=== PATIENT | male | born 1995 | race Caucasian/White ===

== ENCOUNTER 2019-08-19 18:53 | Emergency (ER) | payer OTHER, MEDICAID, SELFPAY ==
[2019-08-19 19:20] VITALS: BP 157/88; PULSE 95; RESP 22; TEMP 36.9; O2SAT 98; BMI 36.8
--- NOTE | 2019-08-19 19:24 | DI.CT.S_ITS ---
PROCEDURE: CT HEAD/BRAIN WO CON INDICATIONS: mental status TECHNIQUE: Noncontrast 4.5 mm thick angled axial sections acquired from the foramen magnum to the vertex, with coronal and sagittal reformats. For radiation dose reduction, the following was used: automated exposure control, adjustment of mA and/or kV according to patient size. COMPARISON: None. FINDINGS: Image quality: Excellent. CSF spaces: Basal cisterns are patent. No extra-axial fluid collections. Ventricles are normal in size and shape. Brain: No midline shift. No intracranial masses or hemorrhage. Cole-white matter interface is normal. Skull and face: Calvarium and visualized facial bones are intact, without suspicious lesions. Sinuses: Visualized sinuses and mastoids are clear. IMPRESSION: Unremarkable head CT. No evidence of acute stroke, hemorrhage, or mass. Dictated by: Yosef Buck M.D. on 08/19/2019 at 19:56 Approved by: Yosef Buck M.D. on 08/19/2019 at 19:57
[2019-08-19] MEDS: SODIUM CHLORIDE 0.9% 1,000 ML 150 ML IV (19:40)
[2019-08-19 19:47] LABS: UR Morphine/Opiate cutoff 300 Negative (Negative); Ur Creatinine Normal (Normal); Ur Specific Gravity Normal (Normal); Urine Amphetamines Negative (Negative); Urine Barbiturates Negative (Negative); Urine Benzodiazepines Negative (Negative); Urine Cocaine Negative (Negative); Urine MDMA Negative (Negative); Urine Methadone Negative (Negative); Urine Methamphetamines Negative (Negative); Urine Oxycodone Negative (Negative); Urine Phencyclidine Negative (Negative); Urine Tetrahydrocannabinol Negative (Negative); Urine Tricyclic Antidepressant Negative (Negative); Urine pH Normal (Normal)
[2019-08-19 20:00] LABS: PCO2 VBG 51.5 mmHg (45-50); pH VBG 7.38 (7.33-7.43)
[2019-08-19 20:01] LABS: HCO3 VBG 30 mmol/L (23-28); Oxygen Saturation VBG 58 % (70-75); PO2 VBG 32 mmHg (35-45); Total CO2 VBG 32 mmol/L (24-29)
[2019-08-19 20:02] LABS: Add Manual Diff / Slide Review NO; Basophils Absolute Auto 100 /uL (0-100); Basophils Percent Auto 0.6 % (0-2); Eosinophils Absolute Auto 100 /uL (0-450); Eosinophils Percent Auto 1.5 % (2-4); Hematocrit 45.5 % (41-53); Hemoglobin 15.8 g/dL (13.5-17.5); Lymphocytes Absolute Auto 2100 /uL (1100-4500); Lymphocytes Percent Auto 20.8 % (25-40); Mean Corpuscular HGB Conc 34.8 % (30-36); Mean Corpuscular Hemoglobin 30.6 PG (26-34); Mean Corpuscular Volume 88.2 fL (80-100); Monocytes Absolute Auto 500 /uL (0-900); Monocytes Percent Auto 5.4 % (3-14); Neutrophils Absolute Auto 7100 /uL (1500-7000); Neutrophils Percent Auto 71.7 % (50-75); Platelet Count 292 X10^3/uL (150-400); Red Blood Cell Count 5.16 X10^6/uL (4.5-5.9); Red Cell Distribution Width 13.2 % (11.6-14.8); White Blood Cell Count 9.9 X10^3/uL (4.5-11.0)
[2019-08-19 20:11] LABS: Prothrombin Time 11.4 SECONDS (10.1-12.7)
[2019-08-19 20:14] LABS: PTT Partial Thromboplastin Tim 29 SECONDS (26.4-36.2)
[2019-08-19 20:15] LABS: Acetaminophen < 10 ug/mL (10-30); Alanine Aminotransferase 42 IU/L (<50); Albumin 4.4 g/dL (3.5-5.0); Albumin Globulin Ratio 1.4 (1.0-2.8); Alkaline Phosphatase 69 U/L (38-126); Aspartate Aminotransferase 27 IU/L (17-59); BUN Creatinine Ratio 16.7 (6-22); Bilirubin Total 0.5 mg/dL (0.2-1.3); Blood Urea Nitrogen 15 mg/dL (9-20); Calcium 9.2 mg/dL (8.4-10.2); Carbon Dioxide 30 mmol/L (22-32); Chloride 103 mmol/L (98-107); Estimated Glomerular Filt Rate > 60.0 mL/min (>60); Ethanol (ETOH) < 10 mg/dL; Globulin 3.2 g/dL (1.7-4.1); Glucose 103 mg/dL (70-100); HEMOLYSIS 20 (0-50); Potassium 4.4 mmol/L (3.4-5.1); Salicylate < 1.0 mg/dL (<20); Sodium 141 mmol/L (137-145); Total Protein 7.6 g/dL (6.3-8.2)
[2019-08-19 20:27] LABS: Troponin I < 0.012 ng/mL (0.01-0.034)
[2019-08-19 20:28] LABS: Ammonia (NH3) < 9.0 umol/L (9-30); Lactate (Lactic Acid) 1.7 mmol/L (0.7-2.1)
[2019-08-19 20:32] LABS: Prolactin 16.4 ng/mL (3.7-17.9)
[2019-08-19 20:46] LABS: Thyroid Stimulating Hormone 0.74 uIU/mL (0.47-4.68)
[2019-08-19 21:00] VITALS: BP 150/80; PULSE 104; RESP 20; O2SAT 97
--- NOTE | 2019-08-19 21:08 | ED_ITS ---
HPI - Altered Mental Status General Chief Complaint: Altered Mental Status Stated Complaint: Overdose Time Seen by Provider: 08/19/19 18:55 Source: patient Mode of arrival: Ambulatory Limitations: no limitations History of Present Illness HPI narrative: 24-year-old male smoker with extensive mental health history and frequent visits to various emergency departments presents because he seems sleepy today. Patient denies any homicidal ideation. Patient denies any alcohol street drugs nor [id number] medications such as Tylenol or aspirin. The patient had recently been given a prescription for Phenergan which is supposed to help with his anxiety and nausea, he states he only took 1 and this is confirmed by me 1 missing pill from his bottle. Additionally he takes venlafaxine 75 mg extended release which was last refilled on June 14 with a total of 30 pills and he has 15 left. Furthermore patient takes fluoxetine 20 mg which was filled also on June 14 for 30 pills and he has 24 left. Patient denies any chest pain or shortness of breath. He has no nausea, vomiting or diarrhea. He denies fever or chills. He denies any headache, blurred vision or confusion. He lives with friends but also has family in town. He denies any change in medications, diet or activity MD complaint: altered mental status Onset (ago): hour(s) Timing confirmed by: family member Severity: moderate Consistency of symptoms: unknown Associated symptoms: denies other symptoms Related Data Allergies Allergy/AdvReac Type Severity Reaction Status Date / Time No Known Drug Allergies Allergy Verified 08/19/19 19:16 Review of Systems Constitutional Constitutional: Denies chills, Denies fatigue, Denies fever(s), Denies frequent falls, Denies lethargy, Reports malaise and Denies weakness Eyes Eyes: Denies change in vision, Denies eye discharge, Denies irritation and Denies loss of vision ENT Ears, Nose, Mouth, and Throat: Denies change in voice, Denies dizziness, Denies neck pain, Denies sore throat and Denies throat swelling Cardiovascular Cardiovascular: Denies chest pain, Denies irregular heart rhythm, Denies lightheadedness, Denies palpitations, Denies dyspnea, Denies dyspnea on exertion and Denies orthopnea Respiratory Respiratory: Denies cough, Denies dyspnea, Denies dyspnea on exertion and Denies wheezing Gastrointestinal Gastrointestinal: Denies abdominal pain, Denies change in bowel habits, Denies diarrhea, Denies nausea and Denies vomiting Genitourinary Genitourinary: Denies hematuria, Denies flank pain, Denies urinary incontinence and Denies urinary urgency Musculoskeletal Musculoskeletal: Denies back pain, Denies muscle weakness, Denies neck pain, Denies numbness and Denies tingling Integumentary/Breasts Skin/Breast: Denies pruritus, Denies erythema, Denies rash and Denies wounds Neurologic Neurologic: Denies behavioral changes, Denies confusion, Denies dizziness, Denies frequent falls, Denies loss of vision, Denies numbness, Denies tingling and Denies weakness Psychiatric Psychiatric: Denies anxiety, Denies behavioral changes, Denies confusion, Denies depression, Denies homicidal ideation and Denies suicidal ideation Endocrine Endocrine: Denies fatigue, Denies flushing and Denies palpitations Hematologic/Lymphatic Hematologic/Lymphatic: Denies easy bruising Allergic/Immunologic Allergic/Immunologic: Denies urticaria, Denies throat swelling and Denies wheezing Patient History Social History Smoking Status: Never smoker alcohol intake frequency: holidays/special occasions only Substance Use Type: marijuana Exam Narrative Exam Narrative: GENERAL: [24] year old patient appears stated age. Overweight, flat affect but answering all questions accurately. Alert and oriented x3. HEAD: Atraumatic. Normocephalic. EYES: Pupils equal round and reactive. Extraocular motions intact. No scleral icterus. No injection or drainage. ENT: Nose without bleeding, purulent drainage. Throat without erythema, tonsillar hypertrophy or exudate. Airway patent. NECK: Trachea midline. Non tender CARDIOVASCULAR: Regular rate and rhythm without murmurs, gallops, or rubs. RESPIRATORY: Clear to auscultation. Breath sounds equal bilaterally. No wheezes, rales, or rhonchi. GASTROINTESTINAL: Abdomen soft, non-tender, nondistended. EXTREMITIES: No edema or joint tenderness. BACK: Nontender without deformity or crepitance. No flank tenderness. NEURO: AOx3. SKIN: No rash or erythema of visible areas Initial Vital Signs Initial Vital Signs: Vital Signs Temperature 98.5 F 08/19/19 19:20 Pulse Rate 95 H 08/19/19 19:20 Respiratory Rate 22 08/19/19 19:20 Blood Pressure 157/88 H 08/19/19 19:20 Pulse Oximetry 98 08/19/19 19:20 Course Orders Ordered: ED Orders 08/19/19 19:24 CT head/brain wo con Stat 08/19/19 19:25 EKG-12 Lead Stat 08/19/19 19:33 Urine Culture Stat Urine Drug Screen, Rapid Stat 08/19/19 19:40 Acetaminophen Stat Complete Blood Count AUTO DIFF Stat Comprehensive Metabolic Panel Stat Ethanol (ETOH) Stat Partial Thromboplastin Time Stat Prolactin Stat Prothrombin Time INR Stat Salicylate Stat Thyroid Stimulating Hormone Stat Troponin I Stat 08/19/19 19:47 Venous Blood Gas Stat 08/19/19 20:03 Ammonia (NH3) Stat Blood Culture Stat Lactate (Lactic Acid) Stat Discontinued Medications Sodium Chloride (Normal Saline 0.9%) 1,000 mls @ 150 mls/hr IV CONT ROSE Last Infusion: 08/19/19 21:18 Dose: 150 mls/hr Documented by: Admin: 08/19/19 19:40 Dose: 150 mls/hr Documented by: EMMA Reevaluation(s) Reevaluation #1: Patient is awake, alert and oriented. He is able to ambulate to the department without difficulty. His labs, exam and imaging are very reassuring. He is AOx3, ambulatory in the department. Questions answered to apparent satisfaction and return precautions given. Vital Signs Vital signs: Vital Signs - 8 hr 08/19/19 19:20 08/19/19 21:00 Temperature 98.5 F Pulse Rate 95 H 104 H Respiratory Rate 22 20 Blood Pressure 157/88 H Blood Pressure [Left Arm] 150/80 H Pulse Oximetry 98 97 MDM - Altered Mental Status Lab Data Result diagrams: 08/19/19 19:40 08/19/19 19:40 Labs: Lab Results 08/19/19 08/19/19 08/19/19 Range/Units 19:33 19:40 19:40 WBC 9.9 (4.5-11.0) X10^3/uL RBC 5.16 (4.5-5.9) X10^6/uL Hgb 15.8 (13.5-17.5) g/dL Hct 45.5 (41-53) % MCV 88.2 (80-100) fL MCH 30.6 (26-34) PG MCHC 34.8 (30-36) % RDW 13.2 (11.6-14.8) % Plt Count 292 (150-400) X10^3/uL Neut % (Auto) 71.7 (50-75) % Lymph % (Auto) 20.8 L (25-40) % [place] % (Auto) 5.4 (3-14) % Eos % (Auto) 1.5 L (2-4) % Baso % (Auto) 0.6 (0-2) % Neut # (Auto) 7100 H (1248-2804) /uL Lymph # (Auto) 2100 (1114-8669) /uL [place] # (Auto) 500 (0-900) /uL Eos # (Auto) 100 (0-450) /uL Baso # (Auto) 100 (0-100) /uL PT 11.4 (10.1-12.7) SECONDS INR 1.0 (0.9-1.3) APTT 29 (26.4-36.2) SECONDS VBG pH (7.33-7.43) VBG pCO2 (45-50) mmHg VBG pO2 (35-45) mmHg VBG HCO3 (23-28) mmol/L VBG Total CO2 (24-29) mmol/L VBG O2 Saturation (70-75) % VBG Base Excess (0-4) mmol/L Sodium (137-145) mmol/L Potassium (3.4-5.1) mmol/L Chloride (98-107) mmol/L Carbon Dioxide (22-32) mmol/L BUN (9-20) mg/dL Creatinine (0.66-1.25) mg/dL Estimated GFR (>60) mL/min BUN/Creatinine Ratio (6-22) Glucose (70-100) mg/dL Serum Osmolality Lactate (0.7-2.1) mmol/L Calcium (8.4-10.2) mg/dL Total Bilirubin (0.2-1.3) mg/dL AST (17-59) IU/L ALT (<50) IU/L Alkaline Phosphatase (38-126) U/L Ammonia (9-30) umol/L Troponin I (0.01-0.034) ng/mL Total Protein (6.3-8.2) g/dL Albumin (3.5-5.0) g/dL Globulin (1.7-4.1) g/dL Albumin/Globulin Ratio (1.0-2.8) TSH (0.47-4.68) uIU/mL Prolactin (3.7-17.9) ng/mL Salicylates (<20) mg/dL U Morph 300 ng/mL cutoff Negative (Negative) Ur Oxycodone Screen Negative (Negative) Urine Methadone Screen Negative (Negative) Acetaminophen (10-30) ug/mL Ur Barbiturates Screen Negative (Negative) U Tricyclic Antidepress Negative (Negative) Ur Phencyclidine Scrn Negative (Negative) Ur Amphetamines Screen Negative (Negative) U Methamphetamines Scrn Negative (Negative) Ur MDMA Scrn (Ecstasy) Negative (Negative) U Benzodiazepines Scrn Negative (Negative) Urine Cocaine Screen Negative (Negative) U Marijuana (THC) Screen Negative (Negative) Ethyl Alcohol ( - 10) mg/dL Ref Test (Refrig) 08/19/19 08/19/19 08/19/19 Range/Units 19:40 19:40 19:47 WBC (4.5-11.0) X10^3/uL RBC (4.5-5.9) X10^6/uL Hgb (13.5-17.5) g/dL Hct (41-53) % MCV (80-100) fL MCH (26-34) PG MCHC (30-36) % RDW (11.6-14.8) % Plt Count (150-400) X10^3/uL Neut % (Auto) (50-75) % Lymph % (Auto) (25-40) % [place] % (Auto) (3-14) % Eos % (Auto) (2-4) % Baso % (Auto) (0-2) % Neut # (Auto) (9030-3269) /uL Lymph # (Auto) (3350-1303) /uL [place] # (Auto) (0-900) /uL Eos # (Auto) (0-450) /uL Baso # (Auto) (0-100) /uL PT (10.1-12.7) SECONDS INR (0.9-1.3) APTT (26.4-36.2) SECONDS VBG pH 7.38 (7.33-7.43) VBG pCO2 51.5 H (45-50) mmHg VBG pO2 32 L (35-45) mmHg VBG HCO3 30 H (23-28) mmol/L VBG Total CO2 32 H (24-29) mmol/L VBG O2 Saturation 58 L (70-75) % VBG Base Excess 5.0 H (0-4) mmol/L Sodium 141 (137-145) mmol/L Potassium 4.4 (3.4-5.1) mmol/L Chloride 103 (98-107) mmol/L Carbon Dioxide 30 (22-32) mmol/L BUN 15 (9-20) mg/dL Creatinine 0.90 (0.66-1.25) mg/dL Estimated GFR > 60.0 (>60) mL/min BUN/Creatinine Ratio 16.7 (6-22) Glucose 103 H (70-100) mg/dL Serum Osmolality Lactate (0.7-2.1) mmol/L Calcium 9.2 (8.4-10.2) mg/dL Total Bilirubin 0.5 (0.2-1.3) mg/dL AST 27 (17-59) IU/L ALT 42 (<50) IU/L Alkaline Phosphatase 69 (38-126) U/L Ammonia (9-30) umol/L Troponin I < 0.012 (0.01-0.034) ng/mL Total Protein 7.6 (6.3-8.2) g/dL Albumin 4.4 (3.5-5.0) g/dL Globulin 3.2 (1.7-4.1) g/dL Albumin/Globulin Ratio 1.4 (1.0-2.8) TSH 0.74 (0.47-4.68) uIU/mL Prolactin 16.4 (3.7-17.9) ng/mL Salicylates < 1.0 (<20) mg/dL U Morph 300 ng/mL cutoff (Negative) Ur Oxycodone Screen (Negative) Urine Methadone Screen (Negative) Acetaminophen < 10 L (10-30) ug/mL Ur Barbiturates Screen (Negative) U Tricyclic Antidepress (Negative) Ur Phencyclidine Scrn (Negative) Ur Amphetamines Screen (Negative) U Methamphetamines Scrn (Negative) Ur MDMA Scrn (Ecstasy) (Negative) U Benzodiazepines Scrn (Negative) Urine Cocaine Screen (Negative) U Marijuana (THC) Screen (Negative) Ethyl Alcohol < 10 ( - 10) mg/dL Ref Test (Refrig) 08/19/19 08/19/19 08/19/19 Range/Units 20:03 20:03 20:03 WBC (4.5-11.0) X10^3/uL RBC (4.5-5.9) X10^6/uL Hgb (13.5-17.5) g/dL Hct (41-53) % MCV (80-100) fL MCH (26-34) PG MCHC (30-36) % RDW (11.6-14.8) % Plt Count (150-400) X10^3/uL Neut % (Auto) (50-75) % Lymph % (Auto) (25-40) % [place] % (Auto) (3-14) % Eos % (Auto) (2-4) % Baso % (Auto) (0-2) % Neut # (Auto) (4208-2051) /uL Lymph # (Auto) (8700-3180) /uL [place] # (Auto) (0-900) /uL Eos # (Auto) (0-450) /uL Baso # (Auto) (0-100) /uL PT (10.1-12.7) SECONDS INR (0.9-1.3) APTT (26.4-36.2) SECONDS VBG pH (7.33-7.43) VBG pCO2 (45-50) mmHg VBG pO2 (35-45) mmHg VBG HCO3 (23-28) mmol/L VBG Total CO2 (24-29) mmol/L VBG O2 Saturation (70-75) % VBG Base Excess (0-4) mmol/L Sodium (137-145) mmol/L Potassium (3.4-5.1) mmol/L Chloride (98-107) mmol/L Carbon Dioxide (22-32) mmol/L BUN (9-20) mg/dL Creatinine (0.66-1.25) mg/dL Estimated GFR (>60) mL/min BUN/Creatinine Ratio (6-22) Glucose (70-100) mg/dL Serum Osmolality Cancelled Lactate 1.7 (0.7-2.1) mmol/L Calcium (8.4-10.2) mg/dL Total Bilirubin (0.2-1.3) mg/dL AST (17-59) IU/L ALT (<50) IU/L Alkaline Phosphatase (38-126) U/L Ammonia < 9.0 L (9-30) umol/L Troponin I (0.01-0.034) ng/mL Total Protein (6.3-8.2) g/dL Albumin (3.5-5.0) g/dL Globulin (1.7-4.1) g/dL Albumin/Globulin Ratio (1.0-2.8) TSH (0.47-4.68) uIU/mL Prolactin (3.7-17.9) ng/mL Salicylates (<20) mg/dL U Morph 300 ng/mL cutoff (Negative) Ur Oxycodone Screen (Negative) Urine Methadone Screen (Negative) Acetaminophen (10-30) ug/mL Ur Barbiturates Screen (Negative) U Tricyclic Antidepress (Negative) Ur Phencyclidine Scrn (Negative) Ur Amphetamines Screen (Negative) U Methamphetamines Scrn (Negative) Ur MDMA Scrn (Ecstasy) (Negative) U Benzodiazepines Scrn (Negative) Urine Cocaine Screen (Negative) U Marijuana (THC) Screen (Negative) Ethyl Alcohol ( - 10) mg/dL Ref Test (Refrig) [address] scan - head: Radiologist's impression: Chart Viewer Diagnostics DATE TYPE STATUS AUTHOR Hx 08/19/19 19:24 Yosef Buck Brent Cuellar 24, M1 REG ER, [facility] ED R04 162.56cm 97.522kg BMI: 36.9kg/m? Altered Mental Status Search Chart No Data to Display No Data to Display ONSET Today 19:20 Brent Cuellar 24 M 1995 [address] [address] [address] Scan Report Signed Patient: Brent Cuellar MMR#: [id number] : 1995Acct:[id number] Age/Sex: 24 / MDate of Service: 08/19/19 Loc: ED Accession Number: [id number] Procedure: CT head/brain wo con Ordering Provider: Lloyd Coulter D.O. PROCEDURE: CT HEAD/BRAIN WO CON INDICATIONS: mental status TECHNIQUE: Noncontrast 4.5 mm thick angled axial sections acquired from the foramen magnum to the vertex, with coronal and sagittal reformats. For radiation dose reduction, the following was used: automated exposure control, adjustment of mA and/or kV according to patient size. COMPARISON: None. FINDINGS: Image quality: Excellent. CSF spaces: Basal cisterns are patent. No extra-axial fluid collections. Ventricles are normal in size and shape. Brain: No midline shift. No intracranial masses or hemorrhage. Cole-white matter interface is normal. Skull and face: Calvarium and visualized facial bones are intact, without suspicious lesions. Sinuses: Visualized sinuses and mastoids are clear. IMPRESSION: Unremarkable head CT. No evidence of acute stroke, hemorrhage, or mass. Dictated by: Yosef Buck M.D. on 08/19/2019 at 19:56 Approved by: Yosef uBck M.D. on 08/19/2019 at 19:57 ECG Data Interpretation: Mild tachycardia, sinus rhythm rate [ 104] and free of any signs of ischemia or ectopy. No ST segmental elevation or depression. No T wave inversions MDM Narrative Medical decision making narrative: Multiple etiologies for patient's symptoms considered including: [Various toxidrome including Phenergan, alcohol, sali cylates, acetaminophen and other. A electrolyte abnormalities, head injuries, conversion disorder versus depression.] Patient's symptoms improved or duration of stay with above-stated therapies. Findings and discharge diagnosis discussed with patient/family followed by verbalization of understanding Return precautions discussed with patient/family whom verbalize understanding. Discharge Plan Departure Patient Disposition: Home Clinical Impression: Increased sleeping Discharge Date/Time: 08/19/19 21:18 Instructions: DI for Altered Mental Status Activity Restrictions/Additional Instructions: *You have been diagnosed with [altered mental status, resolved, increased sleeping] *What to do: *Take medications as directed *Follow up with your primary care provider in 2-3 days, call for an appointment. Let them know you were seen in the Emergency Department and that we ask that you be seen in follow up *Return to ER if you should have any new, worsening or concerning symptoms Referrals: [facility] [Outside] [facility] [Outside]
[2019-08-19 21:57] LABS: Miscellaneous to SVL 292
[2019-08-24 09:52] LABS: Acinetobacter baumannii Not Detected (Not Detect); Candida albicans Not Detected (Not Detect); Candida glabrata Not Detected (Not Detect); Candida krusei Not Detected (Not Detect); Candida parapsilosis Not Detected (Not Detect); Candida tropicalis Not Detected (Not Detect); E. coli Not Detected (Not Detect); Enterobacter cloacae complex Not Detected (Not Detect); Enterobacteriaceae species Not Detected (Not Detect); Enterococcus species Not Detected (Not Detect); Haemophilus influenzae Not Detected (Not Detect); KPC (carbapenem-resist gene) Not Detected (Not Detect); Listeria monocytogenes Not Detected (Not Detect); Methicillin-resistant gene Not Detected (Not Detect); Neisseria meningitidis Not Detected (Not Detect); Proteus species Not Detected (Not Detect); Pseudomonas aeruginosa Not Detected (Not Detect); Serratia marcescens Not Detected (Not Detect); Staphylococcus species Not Detected (Not Detect); Streptococcus agalactiae (Gr B Not Detected (Not Detect); Streptococcus pneumonia Not Detected (Not Detect); Streptococcus pyogenes (Gr A) Not Detected (Not Detect); Streptococcus species Not Detected (Not Detect); Vancomycin-rest genes A/B Not Detected (Not Detect)
== END 2019-08-19 21:18 | disposition home or self-care (01) ==
PROVIDERS: Emergency Provider Emergency Medicine
DX: G47.10 Hypersomnia, unspecified (principal); R41.82 Altered mental status, unspecified; R00.0 Tachycardia, unspecified
CPT/HCPCS: 36415; 70450; 80053; 80305; 80320; 80329; 82140; 82805; 83605; 83930; 84146; 84443; 84484; 85025; 85610; 85730; 87040; 87077; 87086; 87147; 87150; 87205; 93005; 96360; 96361; 99283; 99285; G0480

== ENCOUNTER 2019-12-22 00:57 | Emergency (ER) | payer OTHER, MEDICAID, SELFPAY ==
[2019-12-22 00:59] VITALS: BP 137/82; PULSE 92; RESP 18; TEMP 36.7; O2SAT 97; BMI 36.8
--- NOTE | 2019-12-22 01:12 | DI.RAD.S_ITS ---
PROCEDURE: XR CHEST 2V INDICATIONS: cough TECHNIQUE: 2 views of the chest were acquired. COMPARISON: None. FINDINGS: Surgical changes and devices: None. Lungs and pleura: Lungs are clear. No pleural effusions or pneumothorax. Mediastinum: Mediastinal contours are normal. Heart size is normal. Bones and chest wall: No suspicious bony abnormalities. Soft tissues appear unremarkable. IMPRESSION: No acute cardiopulmonary disease. Dictated by: Ritchie Duggan M.D. on 12/22/2019 at 8:57 Approved by: Ritchie Duggan M.D. on 12/22/2019 at 8:58
--- NOTE | 2019-12-22 02:25 | ED_ITS ---
HPI - Chest Pain General Chief Complaint: Upper Respiratory Symptoms Stated Complaint: cough/chest pain/right arm pain Time Seen by Provider: 12/22/19 02:24 Source: patient Mode of arrival: Ambulatory Limitations: no limitations History of Present Illness HPI narrative: This is a 24-year-old male comes emergency depart with clean plane of 3 days of dry cough, chest pain and some pain into his right shoulder area. Patient states that he has not had a known fever but has felt warm intermittently. He has not had any sweats. He has had some nasal congestion but describes it as mild. He has had a dry cough which he states is nonproductive. Patient states that he does have a history of asthma, he has used his inhaler in the last 24 hours and does not normally use it. He thinks he has felt a little bit more wheezy. He does not feel wheezy or tight at this time. He has had a little bit anterior chest discomfort. States that he has had some pain in his right arm in the upper portion. He does not have any numbness tingling or weakness or difficulty with milieu therapist. He has not had any worsening symptoms with exertion. He has not had any long distance travel. He states that he has a roommate who had a friend who may have had contact with someone with coronavirus -19 at some sort of hoahaoism get together but he is unsure if this is a true exposure or not and states that his symptoms started before this person came over and visited them at the house. He denies any other surgical history. He denies any cardiac, pulmonary or embolic history in his family or for himself besides asthma. Related Data Allergies Allergy/AdvReac Type Severity Reaction Status Date / Time No Known Drug Allergies Allergy Verified 08/19/19 19:16 Review of Systems Review of Systems ROS Unobtainable: All systems reviewed & are unremarkable except as noted in HPI and below Patient History Medical History (Updated 12/22/19 @ 02:49 by Padmini Rae DO) Asthma (Acute) Social History Smoking Status: Never smoker Smoking Status: Never smoker alcohol intake frequency: holidays/special occasions only Substance Use Type: does not use Exam Narrative Exam Narrative: GEN: well nourished, well appearing male, alert and oriented x 3, patient appears to be in mild distress. HEENT: Atraumatic, pupils are equal round reactive to light, extraocular movements are intact, nares mild clear rhinorrhea, TMs are clear with no fluid, there is no conjunctival pallor. Throat is c mildly erythematous, mild tonsillar enlargement, uvula is midline with no exudates. Mild cervical lymphadenopathy bilaterally. HEART: Regular rate and rhythm without murmur, clicks, rubs. LUNGS:Lungs clear to auscultation, no wheezes, rales, crackles, chest moves symmetrically, no tachypnea accessory muscle use. Patient does have a dry cough intermittently throughout exam and HPI. ABD:bowel sounds normal, soft, non-tender, no guarding, rebound, rigidity, no masses noted, no hepatosplenomegaly MSCL: Patient has some mild tenderness in the left shoulder and upper arm, no swelling, no skin changes, no muscle atrophy, muscles strength 5/5 upper and lower extremities, full range of motion, normal gait NEURO:CN 2-12 intact, sensation normal SKIN: No rash, no erythema or other skin changes. Initial Vital Signs Initial Vital Signs: Vital Signs Temperature 98.0 F 12/22/19 00:59 Pulse Rate 92 H 12/22/19 00:59 Respiratory Rate 18 12/22/19 00:59 Blood Pressure 137/82 12/22/19 00:59 Pulse Oximetry 97 12/22/19 00:59 Scores PERC Score Age greater than or equal to 50 years: No Heart rate greater than or equal to 100 bpm: No Room Air O2 Sat less than 95%: No Unilateral leg swelling: No Recent trauma or surgery: No Hemoptysis: No Prior PE or DVT: No Hormone Use: No Total PERC Score: 0 Course Orders Ordered: ED Orders 12/22/19 01:12 XR chest 2V Stat Vital Signs Vital signs: Vital Signs - 8 hr 12/22/19 00:59 Temperature 98.0 F Pulse Rate 92 H Respiratory Rate 18 Blood Pressure 137/82 Pulse Oximetry 97 MDM - Chest Pain Imaging Data Chest x-ray: Radiologist's Impression: No acute cardiopulmonary abnormality [facility] Narrative Medical decision making narrative: Patient comes in with complaint of dry cough, increased wheezing and requiring increased usage of inhaler. Some chest discomfort in into his right shoulder. Patient states he feels better after his inhaler. He is afebrile in department. He has felt warm but not had any fevers documented at home or sweats. Chest x-ray is negative. He does not have any clear rodriguez virus contacts. And we discussed self quarantine, short course of steroids as he has been more wheezy although he is not currently on exam and that he has plenty of albuterol at home. Discussed oral threshold to return if he has any worsening symptoms. Patient feels comfortable with this plan. Discharge Plan Departure Patient Disposition: Home Clinical Impression: Bronchitis Instructions: Acute Bronchitis Activity Restrictions/Additional Instructions: Take steroids once daily until gone. Continue to use albuterol inhaler, 1-2 puffs every 4 hours as needed for wheezing. It is recommended that you do self quarantine until your asymptomatic or 7-10 days. Return to the ER for persistently high fevers that do not respond to Tylenol or ibuprofen, increasing shortness of breath, coughing up blood or other productive sputum, lightheadedness, passing out, new or changing chest pain, persistent vomiting, black or bloody stools, new rashes or skin changes or other new or concerning symptoms.
[2019-12-22 02:57] VITALS: BP 147/85; PULSE 93; O2SAT 98
== END 2019-12-22 03:01 | disposition home or self-care (01) ==
PROVIDERS: Emergency Provider Emergency Medicine
DX: J40 Bronchitis, not specified as acute or chronic (principal)
CPT/HCPCS: 71046; 99281; 99283

== ENCOUNTER 2019-12-27 21:43 | Emergency (ER) | payer OTHER, MEDICAID, SELFPAY ==
--- NOTE | 2019-12-27 21:47 | ED.SOB ---
HPI - SOB/Dyspnea General Chief Complaint: Upper Respiratory Symptoms Stated Complaint: difficulty breathing Time Seen by Provider: 12/27/19 21:45 Source: patient Mode of arrival: Ambulatory Limitations: no limitations History of Present Illness HPI Narrative: This is a 24-year-old male comes to the emergency department with complaint of cough, increased wheezing and increased usage of his inhaler. He was seen by myself several days ago with a complaint of some chest pain in his right shoulder. He states that the pain has gone away. Patient does not think that he has had any fevers. He states maybe some mild nasal congestion. States the cough has been dry. He has been using his inhaler is albuterol. He does not feel tight or wheezy. Patient states he has not had any nausea, no vomiting, no diarrhea constipation. No urinary symptoms. States he has not really worsened at all but has not improved. Related Data Allergies Allergy/AdvReac Type Severity Reaction Status Date / Time No Known Drug Allergies Allergy Verified 08/19/19 19:16 Review of Systems Review of Systems ROS Unobtainable: All systems reviewed & are unremarkable except as noted in HPI and below Patient History Medical History Asthma (Acute) Social History Smoking Status: Never smoker Smoking Status: Never smoker alcohol intake frequency: holidays/special occasions only Substance Use Type: does not use Exam Narrative Exam Narrative: GEN: well nourished, well appearing male, alert and oriented x 3, patient appears to be in mild distress. HEENT: Atraumatic, pupils are equal round reactive to light, extraocular movements are intact, nares are clear. Throat is clear without any exudates, erythema, tonsillar enlargement or uvular deviation HEART: Regular rate and rhythm without murmur, clicks, rubs. LUNGS:Lungs clear to auscultation, no wheezes, rales, crackles, chest moves symmetrically, no tachypnea accessory muscle use. Patient does have a dry cough in the room. ABD:bowel sounds normal, soft, non-tender, no guarding, rebound, rigidity, no masses noted, no hepatosplenomegaly MSCL: Non-tender, full range of motion, normal gait NEURO:CN 2-12 intact, sensation normal SKIN: Rash, no erythema or other skin changes. Initial Vital Signs Initial Vital Signs: Vital Signs Temperature 97.8 F 12/27/19 21:50 Pulse Rate 97 H 12/27/19 21:50 Respiratory Rate 22 12/27/19 21:50 Blood Pressure 148/67 H 12/27/19 21:50 Pulse Oximetry 97 12/27/19 21:50 Course Orders Ordered: ED Orders 12/27/19 21:57 XR chest 2V Stat Vital Signs Vital signs: Vital Signs - 8 hr 12/27/19 21:50 12/27/19 21:55 Temperature 97.8 F Pulse Rate 97 H 82 Respiratory Rate 22 20 Blood Pressure 148/67 H Pulse Oximetry 97 98 MDM - SOB/Dyspnea Imaging Data Chest x-ray: My Impression: No infiltrate, no acute process. Normal mediastinum, no cardiomegaly. MDM Narrative Medical decision making narrative: Patient comes in with complaint of continued dry cough and wheezing he has been using inhaler he states it is mildly helpful. He denies any fevers so far. He states he does not really feel any worse, when asked why he returned this evening he states because his roommate told him that his medicines were working and he needed to come back. Patient vital signs show heart rate of 97, O2 sats 97% on room air. Plan for chest x-ray. Chest x-ray is negative. Patient states he is not feeling any worse. Vital signs are stable here in the department. He found the prednisone minimally helpful. He states he has using his albuterol some but not with increasing frequency. He feels comfortable returning home at this time. Discharge Plan Departure Patient Disposition: Home Clinical Impression: Bronchitis Discharge Date/Time: 12/27/19 22:50 Activity Restrictions/Additional Instructions: Continue your inhaler 1-2 puffs every 4 hours as needed for wheezing. I would recommend to continue with your self quarantine for full 7-10 days. Return to the ER for persistently high fevers that do not respond to Tylenol or ibuprofen, increasing shortness of breath, coughing up blood or other productive sputum, lightheadedness, passing out, new or changing chest pain, persistent vomiting, black or bloody stools, new rashes or skin changes or other new or concerning symptoms.
[2019-12-27 21:50] VITALS: BP 148/67; PULSE 97; RESP 22; TEMP 36.6; O2SAT 97
[2019-12-27 21:55] VITALS: PULSE 82; RESP 20; O2SAT 98
--- NOTE | 2019-12-27 21:57 | DI.RAD.S_ITS ---
PROCEDURE: XR CHEST 2V INDICATIONS: fever, cough TECHNIQUE: 2 views of the chest were acquired. COMPARISON: [facility], CR, XR CHEST 2V, 12/22/2019, 1:08. FINDINGS: Surgical changes and devices: None. Lungs and pleura: Lungs are clear. No pleural effusions or pneumothorax. Mediastinum: Mediastinal contours are normal. Heart size is normal. Bones and chest wall: No suspicious bony abnormalities. Soft tissues appear unremarkable. IMPRESSION: No acute cardiopulmonary pathology. Dictated by: Сергей Horne M.D. on 12/28/2019 at 8:18 Approved by: Сергей oHrne M.D. on 12/28/2019 at 8:28
== END 2019-12-27 22:50 | disposition home or self-care (01) ==
PROVIDERS: Emergency Provider Emergency Medicine
DX: J40 Bronchitis, not specified as acute or chronic (principal)
CPT/HCPCS: 71046; 99283

== ENCOUNTER 2020-02-13 23:56 | Emergency (ER) | payer OTHER, MEDICAID, SELFPAY ==
--- NOTE | 2020-02-13 23:58 | ED_ITS ---
HPI - Overdose General Chief Complaint: Recheck/Abnormal Lab/Rx Stated Complaint: problems w/meds feels he is taking too much Time Seen by Provider: 02/13/20 23:58 Source: patient and family Mode of arrival: Ambulatory Limitations: no limitations History of Present Illness HPI Narrative: 24M nonsmoker with mental health history presents with a family friend in the chief complaint of a few days of feeling a bit groggy and sleepy, particularly after taking his nighttime meds. He recently increased the dosing of both his lithium and Risperdal any states the symptoms started soon thereafter. He denies any dietary change any alcohol or street drugs. He is otherwise well and free of complaint. He denies any suicidal or homicidal ideation. He denies taking any sleeping medications such as Benadryl or [place] in. MD complaint: other Onset (ago): day(s) Timing confirmed by: family member Intent: unknown Context: Intentional Overdose: other Associated symptoms: lethargy Treatments Prior to Arrival: none Related Data Allergies Allergy/AdvReac Type Severity Reaction Status Date / Time No Known Drug Allergies Allergy Verified 08/19/19 19:16 Review of Systems Constitutional Constitutional: Denies chills, Denies fatigue, Denies fever(s), Denies frequent falls, Denies lethargy and Denies weakness Comments: sleepy Eyes Eyes: Denies change in vision, Denies eye discharge, Denies irritation and Denies loss of vision ENT Ears, Nose, Mouth, and Throat: Denies change in voice, Denies dizziness, Denies neck pain, Denies sore throat and Denies throat swelling Cardiovascular Cardiovascular: Denies chest pain, Denies irregular heart rhythm, Denies lightheadedness, Denies palpitations, Denies dyspnea, Denies dyspnea on exertion and Denies orthopnea Respiratory Respiratory: Denies cough, Denies dyspnea, Denies dyspnea on exertion and Denies wheezing Gastrointestinal Gastrointestinal: Denies abdominal pain, Denies change in bowel habits, Denies diarrhea, Denies nausea and Denies vomiting Genitourinary Genitourinary: Denies hematuria, Denies flank pain, Denies urinary incontinence and Denies urinary urgency Musculoskeletal Musculoskeletal: Denies back pain, Denies muscle weakness, Denies neck pain, Denies numbness and Denies tingling Integumentary/Breasts Skin/Breast: Denies pruritus, Denies erythema, Denies rash and Denies wounds Neurologic Neurologic: Denies behavioral changes, Denies confusion, Denies dizziness, Denies frequent falls, Denies loss of vision, Denies numbness, Denies tingling and Denies weakness Psychiatric Psychiatric: Denies anxiety, Denies behavioral changes, Denies confusion, Denies depression, Denies homicidal ideation and Denies suicidal ideation Endocrine Endocrine: Denies fatigue, Denies flushing and Denies palpitations Hematologic/Lymphatic Hematologic/Lymphatic: Denies easy bruising Allergic/Immunologic Allergic/Immunologic: Denies urticaria, Denies throat swelling and Denies wheezing Patient History Medical History Asthma (Acute) Social History Smoking Status: Never smoker Smoking Status: Never smoker alcohol intake frequency: holidays/special occasions only Substance Use Type: does not use Exam Narrative Exam Narrative: GENERAL: [24] year old patient appears stated age. Well- nourished, well-developed patient, in mild distress. Sleepy, but easily arousable. HEAD: Atraumatic. Normocephalic. EYES: Pupils equal round and reactive. Extraocular motions intact. No scleral icterus. No injection or drainage. ENT: Nose without bleeding, purulent drainage. Throat without erythema, tonsillar hypertrophy or exudate. Airway patent. NECK: Trachea midline. Non tender CARDIOVASCULAR: Regular rate and rhythm without murmurs, gallops, or rubs. RESPIRATORY: Clear to auscultation. Breath sounds equal bilaterally. No wheezes, rales, or rhonchi. GASTROINTESTINAL: Abdomen soft, non-tender, nondistended. EXTREMITIES: No edema or joint tenderness. BACK: Nontender without deformity or crepitance. No flank tenderness. NEURO: AOx3. SKIN: No rash or erythema of visible areas Initial Vital Signs Initial Vital Signs: Vital Signs Temperature 97.5 F L 02/14/20 00:04 Pulse Rate 93 H 02/14/20 00:04 Respiratory Rate 22 02/14/20 00:04 Blood Pressure 163/93 H 02/14/20 00:04 Pulse Oximetry 97 02/14/20 00:04 Course Orders Ordered: ED Orders 02/14/20 00:20 Urinalysis and Microscopic Stat Urine Drug Screen, Rapid Stat 02/14/20 00:23 Basic Metabolic Panel Stat Complete Blood Count AUTO DIFF Stat Moyers Stat Vital Signs Vital signs: Vital Signs - 8 hr 02/14/20 00:04 Temperature 97.5 F L Pulse Rate 93 H Respiratory Rate 22 Blood Pressure 163/93 H Pulse Oximetry 97 MDM - Overdose Lab Data Result diagrams: 02/14/20 00:23 02/14/20 00:23 Labs: Lab Results 02/14/20 02/14/20 02/14/20 Range/Units 00: 00:20 00:23 WBC 9.5 (4.5-11.0) X10^3/uL RBC 4.70 (4.5-5.9) X10^6/uL Hgb 14.5 (13.5-17.5) g/dL Hct 40.9 L (41-53) % MCV 87.0 (80-100) fL MCH 30.8 (26-34) PG MCHC 35.4 (30-36) % RDW 13.2 (11.6-14.8) % Plt Count 303 (150-400) X10^3/uL Neut % (Auto) 68.9 (50-75) % Lymph % (Auto) 22.0 L (25-40) % [place] % (Auto) 6.9 (3-14) % Eos % (Auto) 1.5 L (2-4) % Baso % (Auto) 0.7 (0-2) % Neut # (Auto) 6500 (8233-8753) /uL Lymph # (Auto) 2100 (7534-9032) /uL [place] # (Auto) 700 (0-900) /uL Eos # (Auto) 100 (0-450) /uL Baso # (Auto) 100 (0-100) /uL Sodium (137-145) mmol/L Potassium (3.4-5.1) mmol/L Chloride (98-107) mmol/L Carbon Dioxide (22-32) mmol/L BUN (9-20) mg/dL Creatinine (0.66-1.25) mg/dL Estimated GFR (>60) mL/min BUN/Creatinine Ratio (6-22) Glucose (70-100) mg/dL Calcium (8.4-10.2) mg/dL Urine Color Yellow Urine Appearance Clear Urine pH 5.5 (4.5-8.0) Ur Specific [place] 1.025 (1.000-1.035) Urine Protein Negative (Negative) Urine Glucose (UA) Negative (Negative) g/dL Urine Ketones Trace H (NEGATIVE) Urine Occult Blood Negative (Negative) Urine Nitrate Negative (Negative) Urine Bilirubin Negative (NEGATIVE) Urine Urobilinogen 0.2 (0.2) E.U./dL Ur Leukocyte Esterase Negative (NEGATIVE) Urine RBC None seen (0-5/HPF) Urine WBC None seen (0-5/HPF) Urine Bacteria None seen (None) Ur Culture Indicated? Cult not indicated U Opiates 300ng/mL cut Negative (Negative) Ur Oxycodone Screen Negative (Negative) Urine Methadone Screen Negative (Negative) Ur Barbiturates Screen Negative (Negative) U Tricyclic Antidepress Negative (Negative) Ur Phencyclidine Scrn Negative (Negative) Ur Amphetamines Screen Negative (Negative) U Methamphetamines Scrn Negative (Negative) Ur MDMA Scrn (Ecstasy) Negative (Negative) U Benzodiazepines Scrn Negative (Negative) [place] (0.6-1.2) mmol/L Urine Cocaine Screen Negative (Negative) U Marijuana (THC) Screen Negative (Negative) 02/14/20 02/14/20 Range/Units 00:23 00:23 WBC (4.5-11.0) X10^3/uL RBC (4.5-5.9) X10^6/uL Hgb (13.5-17.5) g/dL Hct (41-53) % MCV (80-100) fL MCH (26-34) PG MCHC (30-36) % RDW (11.6-14.8) % Plt Count (150-400) X10^3/uL Neut % (Auto) (50-75) % Lymph % (Auto) (25-40) % [place] % (Auto) (3-14) % Eos % (Auto) (2-4) % Baso % (Auto) (0-2) % Neut # (Auto) (1026-2915) /uL Lymph # (Auto) (6671-0882) /uL [place] # (Auto) (0-900) /uL Eos # (Auto) (0-450) /uL Baso # (Auto) (0-100) /uL Sodium 139 (137-145) mmol/L Potassium 4.1 (3.4-5.1) mmol/L Chloride 102 (98-107) mmol/L Carbon Dioxide 31 (22-32) mmol/L BUN 19 (9-20) mg/dL Creatinine 0.96 (0.66-1.25) mg/dL Estimated GFR > 60.0 (>60) mL/min BUN/Creatinine Ratio 19.8 (6-22) Glucose 119 H (70-100) mg/dL Calcium 9.5 (8.4-10.2) mg/dL Urine Color Urine Appearance Urine pH (4.5-8.0) Ur Specific [place] (1.000-1.035) Urine Protein (Negative) Urine Glucose (UA) (Negative) g/dL Urine Ketones (NEGATIVE) Urine Occult Blood (Negative) Urine Nitrate (Negative) Urine Bilirubin (NEGATIVE) Urine Urobilinogen (0.2) E.U./dL Ur Leukocyte Esterase (NEGATIVE) Urine RBC (0-5/HPF) Urine WBC (0-5/HPF) Urine Bacteria (None) Ur Culture Indicated? U Opiates 300ng/mL cut (Negative) Ur Oxycodone Screen (Negative) Urine Methadone Screen (Negative) Ur Barbiturates Screen (Negative) U Tricyclic Antidepress (Negative) Ur Phencyclidine Scrn (Negative) Ur Amphetamines Screen (Negative) U Methamphetamines Scrn (Negative) Ur MDMA Scrn (Ecstasy) (Negative) U Benzodiazepines Scrn (Negative) [place] < 0.2 L (0.6-1.2) mmol/L Urine Cocaine Screen (Negative) U Marijuana (THC) Screen (Negative) Discharge Plan Departure Patient Disposition: Home Clinical Impression: Medication adverse effect Qualifiers: Encounter type: initial encounter Qualified Code(s): T50.905A - Adverse effect of unspecified drugs, medicaments and biological substances, initial encounter Discharge Date/Time: 02/14/20 01:18 Activity Restrictions/Additional Instructions: *You have been diagnosed with [ sleepiness, likely a consequence of your new increased doseages ] *What to do: *Take medications as directed *Follow up with your primary care providerAs Soon As Possible, call for an appointment. Let them know you were seen in the Emergency Department and that we ask that you be seen in follow up *Return to ER if you should have any new, worsening or concerning symptoms
[2020-02-14 00:04] VITALS: BP 163/93; PULSE 93; RESP 22; TEMP 36.4; O2SAT 97
[2020-02-14 00:32] LABS: Bacteria Urine None Seen; RBC Urine None Seen (0-5/HPF); WBC Urine None Seen (0-5/HPF)
[2020-02-14 00:34] LABS: Appearance Urine UA CLEAR; Bilirubin Urine UA NEGATIVE (NEGATIVE); Color Urine UA YELLOW; Glucose Urine UA NEGATIVE (Negative); Ketones Urine UA TRACE (NEGATIVE); Leukocyte Esterase Urine UA NEGATIVE (NEGATIVE); Nitrite Urine UA NEGATIVE (Negative); Occult Blood Urine UA NEGATIVE (Negative); Protein Urine UA NEGATIVE (Negative); Specific Gravity Urine UA 1.025 (1.000-1.035); Urobilinogen Urine UA 0.2 E.U./dL (0.2); pH Urine UA 5.5 (4.5-8.0)
[2020-02-14 00:39] LABS: UR Morphine/Opiate cutoff 300 Negative (Negative); Ur Creatinine Normal (Normal); Ur Specific Gravity Normal (Normal); Urine Amphetamines Negative (Negative); Urine Barbiturates Negative (Negative); Urine Benzodiazepines Negative (Negative); Urine Cocaine Negative (Negative); Urine MDMA Negative (Negative); Urine Methadone Negative (Negative); Urine Methamphetamines Negative (Negative); Urine Oxycodone Negative (Negative); Urine Phencyclidine Negative (Negative); Urine Tetrahydrocannabinol Negative (Negative); Urine Tricyclic Antidepressant Negative (Negative); Urine pH Normal (Normal)
[2020-02-14 00:40] LABS: Add Manual Diff / Slide Review NO; Basophils Absolute Auto 100 /uL (0-100); Basophils Percent Auto 0.7 % (0-2); Eosinophils Absolute Auto 100 /uL (0-450); Eosinophils Percent Auto 1.5 % (2-4); Hematocrit 40.9 % (41-53); Hemoglobin 14.5 g/dL (13.5-17.5); Lymphocytes Absolute Auto 2100 /uL (1100-4500); Mean Corpuscular HGB Conc 35.4 % (30-36); Mean Corpuscular Hemoglobin 30.8 PG (26-34); Monocytes Absolute Auto 700 /uL (0-900); Monocytes Percent Auto 6.9 % (3-14); Neutrophils Absolute Auto 6500 /uL (1500-7000); Neutrophils Percent Auto 68.9 % (50-75); Platelet Count 303 X10^3/uL (150-400); Red Cell Distribution Width 13.2 % (11.6-14.8); White Blood Cell Count 9.5 X10^3/uL (4.5-11.0)
[2020-02-14 00:48] LABS: BUN Creatinine Ratio 19.8 (6-22); Blood Urea Nitrogen 19 mg/dL (9-20); Calcium 9.5 mg/dL (8.4-10.2); Carbon Dioxide 31 mmol/L (22-32); Chloride 102 mmol/L (98-107); Estimated Glomerular Filt Rate > 60.0 mL/min (>60); Glucose 119 mg/dL (70-100); HEMOLYSIS < 15 (0-50); Potassium 4.1 mmol/L (3.4-5.1); Sodium 139 mmol/L (137-145)
[2020-02-14 00:49] LABS: Culture Indicated Urine Cult Not Indicated
[2020-02-14 00:54] LABS: Lithium < 0.2 mmol/L (0.6-1.2)
[2020-02-14 01:18] VITALS: BP 163/93; PULSE 93; RESP 20; O2SAT 100
== END 2020-02-14 01:18 | disposition home or self-care (01) ==
LOC: ED 02-14 00:49
PROVIDERS: Emergency Provider Emergency Medicine
DX: T50.901A Poisoning by unspecified drugs, medicaments and biological substances, accidental (unintentional), initial encounter (principal); T50.905A Adverse effect of unspecified drugs, medicaments and biological substances, initial encounter
CPT/HCPCS: 36415; 80048; 80178; 80305; 81001; 85025; 99281; 99283